=== PATIENT | female | born 1955 | race Caucasian/White ===

== ENCOUNTER → 2016-08-21 | Outpatient (CLI) | payer BC ==
[2015-06-29 12:44] VITALS: BP 148/72
[~2016-08-21] MED LIST: HYDR-971 PO; IOHEXOL 300 MG/ML 100ML VIAL. IV ONE; METF500T4 PO; NAPR500T PO; OLME1TAB5 PO
--- NOTE | 2016-08-21 10:54 | KCIC ---
PROCEDURE Barium esophagram HISTORY Difficulty swallowing solids and pills for 6 months, palpable lump for 2 weeks COMPARISON There is no previous similar exam available, correlation made with neck CT performed the same day. 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 Proximal esophagus is somewhat patulous in appearance, episodes of relative decreased contrast opacification of the proximal esophagus with a linear margin. Correlating with the neck CT, this appears to correspond with area at which there is some extrinsic compression upon the proximal patulous esophagus by the trachea which is slightly deviated to the right related to large mass emanating from the thyroid gland. When the patient swallowed a larger bolus of contrast, there was more complete opacification of the proximal esophagus. There is mild ring formation of the distal esophagus without flow limitation. Patient was able to swallow barium tablet without difficulty. Some linear contrast projecting over the mediastinal region on later images is believed to be due to external contrast on the patient's clothing as no leak or aspiration identified during exam. Fluoroscopy time: 2 minutes 50 seconds, 22 images IMPRESSION 1. 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 There were episodes of decreased opacification of the proximal esophagus believed to be due to external compression from the slightly deviated trachea rather than intrinsic mass. When the patient swallowed a larger bolus of contrast, there was complete opacification of the proximal esophagus. Electronically signed by: Victor Manuel Keller MD (Aug 21, 2016 10:52:21)
--- NOTE | 2016-08-21 11:43 | KCIC ---
PROCEDURE Neck CT with contrast. HISTORY Neck masses, difficulty swallowing, felt lumps for a few weeks, difficulty swallowing since March 2016 TECHNIQUE After bolus of intravenous contrast, CT imaging was performed of the neck, multiplanar reconstruction images submitted. Exposure: One or more of the following individualized dose reduction techniques were utilized for this exam: 1. Automated exposure control. 2. Adjustment of the mA and/or kV according to patient size. 3. Use of iterative reconstruction technique. Contrast: 80 cc Omnipaque 300 COMPARISON None FINDINGS There is some motion degradation. There is very large heterogeneous mass emanating from the thyroid gland. There are areas of cystic change interspersed with areas of solid enhancing density, also some scattered calcifications. Findings are more centered in the left thyroid gland and isthmus of the thyroid gland although also involvement of the right lobe.. The size of masses on the order of approximately 7 cm transverse by 4.2 cm AP by approximately 5.4 cm cc. There is some intrathoracic extent. There is adjacent apparent yessenia mass along the posterior, inferior aspect of the right thyroid gland axial image 50 AP, short axis dimension on the order of 1.1 cm. There is borderline enlarged node up to 1 cm short axis dimension of the right paratracheal region of the superior mediastinum axial image 65. There is also apparent adjacent enhancing yessenia mass along the left aspect of the thyroid gland axial images 53, short axis dimension on the order of 1 centimeter, just anterior to the left common carotid artery. Mass also extends along the anterior aspect of the left common carotid artery, located just medial to the left internal jugular vein. There is some deviation of the trachea slightly to the right, also mass contacting the ventral surface of the patulous esophagus which is deviated to the left. There is some impingement of the patulous proximal esophagus by the trachea. There are multiple other nodes of the bilateral neck. Largest right level 2 node measures up to 1.2 cm short axis dimension. Largest left level 2 node measures 0.8 cm short axis dimension. There are nodes are nodules of the superficial parotid glands bilaterally, on the left up to 0.8 cm long-axis and on the right up to 1 cm long-axis. There is preservation of the parapharyngeal fat planes. The visualized mastoid air cells and paranasal sinuses are overall aerated. There are some tonsillar calcifications. IMPRESSION 1. There is large heterogeneous mass emanating from the thyroid gland, more eccentric to the left although also involvement of the right lobe. While a goiter is possible, findings are concerning for possibility of thyroid malignancy especially given history of progression of palpable area and symptoms. There is also lymphadenopathy as stated. 2. There are nonspecific nodes or nodules of the superficial parotid glands bilaterally. Electronically signed by: Victor Manuel Keller MD (Aug 21, 2016 11:42:39)
== END | disposition home or self-care (01) ==
LOC: KCIC CT 08:25
PROVIDERS: ATTEND Family Medicine
DX: R13.10 Dysphagia, unspecified (principal); R22.1 Localized swelling, mass and lump, neck; J39.8 Other specified diseases of upper respiratory tract
CPT/HCPCS: 70491; 74220; 82565; Q9967

== ENCOUNTER 2018-08-27 23:27 | Emergency (ER) | payer MEDICARE ==
[~2018-08-27] VITALS: Ht 172.7 cm; Wt 115.2 kg
[~2018-08-27 23:27] MED LIST changes: +HYDR-3164 PO; -HYDR-971 PO; -IOHEXOL 300 MG/ML 100ML VIAL. IV ONE; +METF500T16 PO; -METF500T4 PO; +NAPR-683 PO; -NAPR500T PO; +OLME1TAB25 PO; -OLME1TAB5 PO
[2018-08-28] MEDS ORDERED: MECL25TA3 PO (00:43)
--- NOTE | 2018-08-28 00:46 | PHYS DOC ---
Adult General Chief Complaint Chief Complaint: NAUSEA/VOMITING/DIARRHA HPI HPI Patient is a 63 year old female who presents with vertigo. Pt states she was getting ready for bed, walking out of the bathroom when the room started spinning. She then developed nausea, vomiting and diarrhea. She had to sit on the bathroom toilet for a while. This occurred at 9:00pm. She states she had associated hot flashes and was told she looked cold and clammy. She denies BOWLES, CP, palpitations, SOA, syncope, abdominal pain. She states this has happened before, last fall. She was having short episodes of vertigo after getting up out of bed in the morning. They would last only a couple minutes without the nausea, vomiting, diarrhea. Her doctor told her she had vertigo, and gave her some maneuvers to help treat her vertigo and they Worked quite well at that time. She tried those maneuvers today but they did not help. [] Review of Systems Review of Systems Constitutional: Fever and chills [] Eyes: Denies change in visual acuity, redness, or eye pain. Room spinning. [] HENT: Denies nasal congestion or sore throat [] Respiratory: Denies cough or shortness of breath [] Cardiovascular: No additional information not addressed in HPI [] GI: Denies abdominal pain, bloody stools. Complains of nausea, vomiting, diarrhea [] : Denies dysuria or hematuria [] Musculoskeletal: Denies back pain or joint pain [] Integument: Denies rash or skin lesions [] Neurologic: Denies headache, focal weakness or sensory changes [] Endocrine: Denies polyuria or polydipsia [] All other systems were reviewed and found to be within normal limits, except as documented in this note. Current Medications Current Medications Current Medications Medications (Trade) Dose Ordered Sig/Odette Start Time Stop Time Status Last Admin Dose Admin Meclizine HCl (Antivert) 25 mg 1X ONCE 08/28/18 01:00 08/28/18 01:01 DC 08/28/18 01:40 25 MG Ondansetron HCl (Zofran) 4 mg 1X ONCE 08/28/18 01:00 08/28/18 01:01 DC 08/28/18 01:43 4 MG Potassium Chloride (KCl Oral Soln) 40 meq 1X ONCE 08/28/18 01:30 08/28/18 01:31 DC 08/28/18 01:39 40 MEQ Sodium Chloride 1,000 ml @ 1,000 mls/hr 1X ONCE 08/28/18 01:00 08/28/18 01:59 DC Allergies Allergies Allergies Coded Allergies Type Severity Reaction Last Updated Verified No Known Drug Allergies 06/29/15 No Physical Exam Physical Exam Constitutional: Well developed, well nourished, no acute distress, non-toxic appearance. [] HENT: Normocephalic, atraumatic, bilateral external ears normal, oropharynx moist, no oral exudates, nose normal. [] Eyes: PERRLA, EOMI, conjunctiva normal, no discharge. [] Neck: Normal range of motion, no tenderness, supple, no stridor. [] Cardiovascular:Heart rate regular rhythm, no murmur [] Lungs & Thorax: Bilateral breath sounds clear to auscultation [] Abdomen: Bowel sounds normal, soft, no tenderness, no masses, no pulsatile masses. [] Skin: Warm, dry, no erythema, no rash. [] Back: No tenderness, no CVA tenderness. [] Extremities: No tenderness, no cyanosis, no clubbing, ROM intact, no edema. [] Neurologic: Alert and oriented X 3, normal motor function, normal sensory function, no focal deficits noted. [][id number] intact bilaterally there is no obvious nystagmus noted possibly very faint horizontal nystagmus only resolved after a few seconds not direction changing Psychologic: Affect normal, judgement normal, mood normal. [] Current Patient Data Lab Values Laboratory Tests Test 08/27/18 23:56 White Blood Count 9.0 x10^3/uL (4.0-11.0) Red Blood Count 4.78 x10^6/uL (3.50-5.40) Hemoglobin 14.0 g/dL (12.0-15.5) Hematocrit 41.9 % (36.0-47.0) Mean Corpuscular Volume 88 fL (79-100) Mean Corpuscular Hemoglobin 29 pg (25-35) Mean Corpuscular Hemoglobin Concent 33 g/dL (31-37) Red Cell Distribution Width 13.8 % (11.5-14.5) Platelet Count 169 x10^3/uL (140-400) Neutrophils (%) (Auto) 78 % (31-73) H Lymphocytes (%) (Auto) 15 % (24-48) L Monocytes (%) (Auto) 6 % (0-9) Eosinophils (%) (Auto) 1 % (0-3) Basophils (%) (Auto) 0 % (0-3) Neutrophils # (Auto) 7.0 x10^3uL (1.8-7.7) Lymphocytes # (Auto) 1.3 x10^3/uL (1.0-4.8) Monocytes # (Auto) 0.6 x10^3/uL (0.0-1.1) Eosinophils # (Auto) 0.1 x10^3/uL (0.0-0.7) Basophils # (Auto) 0.0 x10^3/uL (0.0-0.2) Sodium Level 142 mmol/L (136-145) Potassium Level 3.0 mmol/L (3.5-5.1) L Chloride Level 103 mmol/L (98-107) Carbon Dioxide Level 25 mmol/L (21-32) Anion Gap 14 (6-14) Blood Urea Nitrogen 15 mg/dL (7-20) Creatinine 0.8 mg/dL (0.6-1.0) Estimated GFR (Cockcroft-Gault) 72.0 BUN/Creatinine Ratio 19 (6-20) Glucose Level 174 mg/dL (70-99) H Calcium Level 8.9 mg/dL (8.5-10.1) Total Bilirubin 0.5 mg/dL (0.2-1.0) Aspartate Amino Transferase (AST) 29 U/L (15-37) Alanine Aminotransferase (ALT) 36 U/L (14-59) Alkaline Phosphatase 99 U/L (46-116) Troponin I Quantitative < 0.017 ng/mL (0.000-0.055) Total Protein 7.9 g/dL (6.4-8.2) Albumin 3.6 g/dL (3.4-5.0) Albumin/Globulin Ratio 0.8 (1.0-1.7) L Laboratory Tests 08/27/18 23:56 Laboratory Tests 08/27/18 23:56 EKG EKG []EKG showed a normal sinus rhythm rate of 71 no acute ischemic changes noted nonspecific flattening noted in the inferior leads but baseline is poor difficult to interpret with Certainty QTC 465 Radiology/Procedures Radiology/Procedures [] Course & Med Decision Making Course & Med Decision Making Pertinent Labs and Imaging studies reviewed. (See chart for details) []63-year-old female known history of vertigo presenting with what sounds like the same. No objective PECAN HULLER findings patient feels better in the emergency room even actually when I first saw her she was already feeling much better. We did replete her potassium we did give him meclizine. IV fluids were ordered but she was actually doing so much better that before they were started she actually wanted to go home. Lab workup other than the potassium was essentially unremarkable reassurance was provided prescription for meclizine was given recommended follow-up with primary doctor should the symptoms persist or recur. Troponin was negative this symptomatology started 4 hours ago it does not sound cardiac at all that was no chest pain she is strong history of room spinning See nurse's note for complete set of vitals respiratory rate was 14 sat normal blood pressures in the 140s systolic heart rate was not tachycardic on my evaluation Dragon Disclaimer Dragon Disclaimer This electronic medical record was generated, in whole or in part, using a voice recognition dictation system. Departure Departure Impression: Primary Impression: Vertigo Disposition: HOME, SELF-CARE Condition: STABLE Referrals: NO PCP (PCP) Scripts Meclizine Hcl (MECLIZINE HCL) 25 Mg Tablet 25 MG PO PRN TID PRN for DIZZINESS, #30 dizziness Prov: ELIO RECINOS MD 08/28/18 ELIO RECINOS MD Aug 28, 2018 00:46
[2018-08-28] MEDS ORDERED: MECLIZINE HCL 12.5 MG TABLET. PO ONE (01:00)
[2018-08-28] MEDS ORDERED: IV NORMAL SALINE 1000ML BAG 1,000 ML IV ONE (01:00)
[2018-08-28] MEDS ORDERED: ONDANSETRON PF 4 MG/2 ML VIAL. IV ONE (01:00)
[2018-08-28 01:01] LABS: BASO % 0 % (0-3); EOS # 0.1 x10^3/uL (0.0-0.7); EOS % 1 % (0-3); HEMATOCRIT 41.9 % (36.0-47.0); LYMPH # 1.3 x10^3/uL (1.0-4.8); LYMPH % 15 % (24-48); MEAN CORPUSCULAR HEMOGLOBIN 29 pg (25-35); MEAN CORPUSCULAR HGB CONC 33 g/dL (31-37); MEAN CORPUSCULAR VOLUME 88 fL (79-100); MONO # 0.6 x10^3/uL (0.0-1.1); MONO % 6 % (0-9); NEUT % 78 % (31-73); PLATELET COUNT 169 x10^3/uL (140-400); RED BLOOD COUNT 4.78 x10^6/uL (3.50-5.40); RED CELL DISTRIBUTION WIDTH 13.8 % (11.5-14.5)
[2018-08-28 01:10] LABS: CALCIUM 8.9 mg/dL (8.5-10.1); CREATININE 0.8 mg/dL (0.6-1.0)
[2018-08-28 01:16] LABS: ALBUMIN 3.6 g/dL (3.4-5.0); ALBUMIN/GLOBULIN RATIO 0.8 (1.0-1.7); TOTAL BILIRUBIN 0.5 mg/dL (0.2-1.0); TOTAL PROTEIN 7.9 g/dL (6.4-8.2)
[2018-08-28 01:30] VITALS: BP 144/82
[2018-08-28] MEDS ORDERED: POTASSIUM CHLORIDE 20 MEQ/15 ML ORAL LIQUID. PO ONE (01:30)
--- NOTE | 2018-08-28 09:00 | EKG ---
[facility] [address] [place] [address] Test Date: 2018-08-27 Test Time: 23:49:30 Pat Name: KATHRYN CARVAJAL Department: Room: Gender: F Stitcher Operator: SHAE : [id number] Requested By: ELIO RECINOS Order Number: [id number] Reading MD: Ricardo Sue Measurements Intervals [place] Rate: 71 P: -61 CT: 180 QRS: -17 QRSD: 84 T: 24 QT: 428 QTc: 465 Interpretive Statements SINUS RHYTHM ATRIAL PREMATURE COMPLEX(ES) LEFTWARD AXIS Electronically Signed On 09-01-2018 13:30:16 CDT by Ricardo Sue
== END 2018-08-28 01:51 | disposition home or self-care (01) ==
LOC: ER 23:27
DX: R42 Dizziness and giddiness (principal); R11.2 Nausea with vomiting, unspecified; R19.7 Diarrhea, unspecified
CPT/HCPCS: 36415; 80053; 84484; 85025; 93005; 96374; 99285; J2405; J8597